=== PATIENT | female | born 1955 | race Caucasian/White ===

== ENCOUNTER → 2016-10-23 | Outpatient (CLI) | payer BC ==
--- NOTE | 2016-10-23 15:53 | RAD ---
DATE: 10/23/2016 EXAM: MAMMO KRISTYN SCREENING BILATERAL Bilateral digital screening mammography to include digital breast tomosynthesis (3D mammography) HISTORY: Screening study. COMPARISON: 01/03/2015 This study was interpreted with the benefit of Computerized Aided Detection (CAD). FINDINGS: Digital MLO and CC mammograms of both breasts were obtained. Additionally digital breast tomosynthesis (3D mammography) images of both breasts in the MLO and CC projections were performed. Comparison study is dated 01/03/2015. The breast parenchyma is heterogeneously dense which can obscure a lesion on mammography (breast density code C). No spiculated mass is seen. No malignant appearing calcification or area of architectural distortion is noted. Benign-appearing calcifications are seen within both breasts. Digital breast tomosynthesis images demonstrate no spiculated mass or malignant appearing calcification. Since the previous examination there has been no significant interval change. IMPRESSION: BI-RADS Category 1, negative. There is no mammographic evidence of malignancy. Routine yearly screening mammography is recommended for follow-up. BI-RADS CATEGORY: 1 NEGATIVE RECOMMENDED FOLLOW-UP: 12M 12 MONTH FOLLOW-UP PQRS compliance statement: Patient information was entered into a reminder system with a target due date 10/23/2017 for the next mammogram. Mammography is a sensitive method for finding small breast cancers, but it does not detect them all and is not a substitute for careful clinical examination. A negative mammogram does not negate a clinically suspicious finding and should not result in delay in biopsying a clinically suspicious abnormality. "Our facility is accredited by the [employer] Mammography [employer]."
== END | disposition home or self-care (01) ==
LOC: MAMMO 08:26
PROVIDERS: ATTEND Nurse Practitioner Family
DX: Z12.31 Encounter for screening mammogram for malignant neoplasm of breast (principal)
CPT/HCPCS: 77063; G0202; 77067

== ENCOUNTER → 2016-12-09 | Outpatient (CLI) | payer BC ==
--- NOTE | 2016-12-09 13:53 | RAD ---
3 views right knee 12/09/2016 Clinical indication: Right knee pain for 6 weeks status post fall. Comparison: None. Findings: No acute fracture or traumatic malalignment. There is mild tricompartment osteoarthritis with osteophytic spurring and mild medial joint compartment narrowing. There is a small suprapatellar joint effusion. Impression: 1. No acute osseous abnormality. 2. Mild tricompartment osteoarthritis. 3. Small knee joint effusion.
== END | disposition home or self-care (01) ==
LOC: DXRADRC 11:06
PROVIDERS: ATTEND Physician Assistant
DX: M17.11 Unilateral primary osteoarthritis, right knee (principal); M25.461 Effusion, right knee; Z91.81 History of falling
CPT/HCPCS: 73562

== ENCOUNTER → 2017-11-11 | Outpatient (CLI) | payer BC ==
--- NOTE | 2017-11-11 11:15 | RAD ---
EXAM: Dual energy x-ray absorptiometry (DEXA). HISTORY: Postmenopausal female presents for osteoporosis screening. COMPARISON: None. TECHNIQUE: Dual energy x-ray absorptiometry of the lumbar spine and right hip was performed. Calculation of bone mineral density based on standard deviations above or below the expected young adult normal value (T-score) was completed. FINDINGS: The average bone mineral density in the 1st through 4th lumbar vertebrae is 1.189 g/cmxcm, corresponding with a T-score of 0.1. The average total bone mineral density in the right hip is 0.895 g/cmxcm, corresponding with a T-score of -0.5. IMPRESSION: Normal bone mineral density. Note: Definitions established by the World Health Organization: 1. Normal: T-score is -1.0 or above. 2. Osteopenia: T-score is between -1.0 and -2.5 . 3. Osteoporosis: T-score is -2.5 or below. Electronically signed by: Analisa Gregorio MD (11/11/2017 11:12 AM) [place] [id number]
--- NOTE | 2017-11-11 16:28 | RAD ---
DATE: 11/11/2017 EXAM: MAMMO KRISTYN SCREENING BILATERAL HISTORY: Asymptomatic screening mammogram. History of benign breast biopsy. COMPARISON: Prior mammograms from 10/23/2016 and 01/03/2015 This study was interpreted with the benefit of Computerized Aided Detection (CAD). The breast parenchyma shows scattered fibroglandular densities. Breast parenchyma level B. FINDINGS: Bilateral CC and MLO views of each breast were obtained. 3-D tomosynthesis was performed in CC and MLO projections of each breast. Right breast: There are no suspicious microcalcifications, masses or areas of architectural distortion. Left breast: There is an asymmetry in the inferior left breast on the left MLO view which may be within the medial left breast as suggested by tomosynthesis. Further evaluation with spot compression CC and MLO views of the left breast as well as possible ultrasound is recommended. The finding measures approximately 8 mm and is best visualized on the left MLO view slice 56 of 71. IMPRESSION: Incomplete left mammogram. Negative right mammogram. BI-RADS CATEGORY: 0 INCOMPLETE: NEEDS ADDITIONAL IMAGING EVALUATION AND/OR PRIOR MAMMOGRAMS FOR COMPARISON. RECOMMENDED FOLLOW-UP: ADD ADDITIONAL IMAGING PQRS compliance statement: Mammography is a sensitive method for finding small breast cancers, but it does not detect them all and is not a substitute for careful clinical examination. A negative mammogram does not negate a clinically suspicious finding and should not result in delay in biopsying a clinically suspicious abnormality. "Our facility is accredited by the [employer] Mammography [employer]."
== END | disposition home or self-care (01) ==
LOC: DXRAD 09:59
PROVIDERS: ATTEND Physician Assistant
DX: Z12.31 Encounter for screening mammogram for malignant neoplasm of breast (principal); Z13.820 Encounter for screening for osteoporosis; Z78.0 Asymptomatic menopausal state
CPT/HCPCS: 77063; 77067; 77080

== ENCOUNTER → 2017-11-19 | Outpatient (CLI) | payer BC ==
--- NOTE | 2017-11-19 14:45 | RAD ---
DATE: 11/19/2017 EXAM: DIGITAL DIAGNOSTIC LT, BREAST LEFT HISTORY: Suspicious screening study COMPARISON: 11/11/2017, 10/23/2016 This study was interpreted with the benefit of Computerized Aided Detection (CAD). The breast parenchyma shows scattered fibroglandular densities. Breast parenchyma level B. FINDINGS: Additional views of the left breast were obtained and correlated with the screening images. There is a small irregular opacity in the posteromedial aspect of the left breast as best seen on the tomosynthesis images from the screening study as well as confirmed on the oblique spot compression view. This small opacity has shown no definite change since the oblique tomograms from 10/23/2016. It is not clearly demonstrated on the current straight mediolateral view or the screening cc views, however, it probably lies at approximately the 9:00 location. Left breast ultrasound, 11/19/2017: A targeted ultrasound exam of the left breast was performed from the 6:00 to the 11:00 locations. Normal heterogeneous fibroglandular shadows are seen. No breast mass or suspicious foci are evident. IMPRESSION: Small left breast opacity which appears unchanged since 10/23/2016. No sonographic correlate could be identified. This probably represents a patch of benign fibrous tissue. Accelerated mammographic surveillance beginning with 3-D left mammography in 6 months and bilateral mammography at one year is suggested. BI-RADS CATEGORY: 3 PROBABLY BENIGN FINDING(S)-SHORT INTERVAL FOLLOW-UP SUGGESTED RECOMMENDED FOLLOW-UP: 6M 6 MONTH FOLLOW-UP PQRS compliance statement: Patient information was entered into a reminder system with a target due date for the next mammogram. Mammography is a sensitive method for finding small breast cancers, but it does not detect them all and is not a substitute for careful clinical examination. A negative mammogram does not negate a clinically suspicious finding and should not result in delay in biopsying a clinically suspicious abnormality. "Our facility is accredited by the [employer] Mammography [employer]."
== END | disposition home or self-care (01) ==
LOC: MAMMO 13:09
PROVIDERS: ATTEND Physician Assistant
DX: R92.8 Other abnormal and inconclusive findings on diagnostic imaging of breast (principal)
CPT/HCPCS: 76641; 77065